=== PATIENT | male | born 1960 | race Caucasian/White ===

== ENCOUNTER 2017-03-11 07:53 | Inpatient (IN) | payer BC, OTHER ==
[2017-02-13 08:26] VITALS: BMI 46.0
[2017-02-13 09:28] LABS: BASO % 0.5 %; BASO ABS # 0.03 K/uL (0-0.2); COMPLETE YES; EOS % 2.6 %; HEMATOCRIT 42.6 % (42-52); IG% 0.2 %; LYMPH % 29.5 %; LYMPH ABS # 1.72 K/uL (1.2-3.4); MEAN CELL VOLUME 88.8 fL (80-100); MEAN CORPUSCULAR HEMOGLOBIN 29.4 pg (25-34); MEAN CORPUSCULAR HGB CONC 33.1 g/dl (32-36); MEAN PLATELET VOLUME 10.5 fL (7.4-10.4); MONO % 10.3 %; NEUT % 56.9 %; PLATELET COUNT 268 K/uL (130-400); WHITE BLOOD COUNT 5.83 K/uL (4.8-10.8)
[2017-02-13 09:36] LABS: PARTIAL THROMBOPLASTIN RATIO 1.1; PROTHROMBIN TIME (PATIENT) 10.5 SECONDS (9.0-12.0)
--- NOTE | 2017-02-13 09:40 | PAT Medication Instructions ---
Service Date Feb 13, 2017. Current Home Medication List Albuterol Hfa (Ventolin Hfa), 2 PUFFS INH QID PRN for RN Allopurinol (Zyloprim), 300 MG PO QAM Cholecalciferol (Vitamin D3), 1 TAB PO BID Diclofenac (Voltaren), 75 MG PO BID Enalapril (Vasotec), 40 MG PO QAM Fish Oil (Odd-3), 1 CAP PO BID Hydrochlorothiazide (Hydrochlorothiazide), 25 MG PO QAM Ipratropium-Albuterol (Combivent Respimat), 1 PUFFS INH BID Tramadol (Ultram), 50 MG PO QID Venlafaxine Hcl (Effexor Xr), 1 CAP PO QAM [Turmeric], 1 TAB PO QAM [Vitamin B12], 1 TAB PO QAM Medication Instructions For Your Scheduled Surgery - Hold the following medications 2 weeks prior to surgery: [Turmeric], 1 TAB PO QAM Fish Oil (Odd-3), 1 CAP PO BID - Hold the following medications 7 days prior to surgery per surgeon's instructions: Diclofenac (Voltaren), 75 MG PO BID - Hold the following medications the morning of surgery: Enalapril (Vasotec), 40 MG PO QAM Hydrochlorothiazide (Hydrochlorothiazide), 25 MG PO QAM [Vitamin B12], 1 TAB PO QAM Cholecalciferol (Vitamin D3), 1 TAB PO BID - Take the following medications the morning of surgery with a sip of water OTHERWISE NOTHING TO EAT OR DRINK AFTER MIDNIGHT: Albuterol Hfa (Ventolin Hfa), 2 PUFFS INH QID PRN (use if needed; BRING TO HOSPITAL) Venlafaxine Hcl (Effexor Xr), 1 CAP PO QAM Allopurinol (Zyloprim), 300 MG PO QAM Ipratropium-Albuterol (Combivent Respimat), 1 PUFFS INH BID Tramadol (Ultram), 50 MG PO QID (may take if needed up to 4 hours prior to surgery) - Take the following medications as scheduled the night before surgery: Albuterol Hfa (Ventolin Hfa), 2 PUFFS INH QID PRN [Vitamin B12], 1 TAB PO QAM Ipratropium-Albuterol (Combivent Respimat), 1 PUFFS INH BID Tramadol (Ultram), 50 MG PO QID Cholecalciferol (Vitamin D3), 1 TAB PO BID If you have any questions please call us at [phone] or [phone] or [phone]
--- NOTE | 2017-02-13 09:40 | DIAGNOSTIC IMAGING REPORT ---
TWO VIEW CHEST CLINICAL HISTORY: Preoperative examination. FINDINGS: PA and lateral chest radiographs are obtained. No prior studies are available for comparison at the time of dictation. The heart is top normal for projection. The mediastinal contour is within normal limits. There is minimal bibasilar atelectasis. The lungs and pleural spaces are otherwise clear. There is no pneumothorax. The bony thorax appears intact. IMPRESSION: No active disease in the chest. Electronically signed by: Celestino Rosas M.D. 02/13/2017 9:39 AM Dictated Date/Time: 02/13/2017 9:38 AM
[2017-02-13 09:46] LABS: BUN/CREATININE RATIO 18.1 (10-20); CALCIUM 9.2 mg/dl (8.5-10.1); CREATININE 0.8 mg/dl (0.60-1.40); POTASSIUM 3.9 mmol/L (3.5-5.1)
[2017-02-13 10:15] LABS: ESTIMATED AVERAGE GLUCOSE 146 mg/dl; HA1C FLAG Normal (Normal)
--- NOTE | 2017-03-07 12:45 | HISTORY & PHYSICAL EXAMINATION ---
DATE OF ADMISSION: 03/11/2017 CHIEF COMPLAINT: Bilateral knee pain, right side greater than left. HISTORY OF PRESENT ILLNESS: A 56-year-old gentleman who has a history of bilateral knee scopes in the past. Over the past several years, he has developed increased pain and discomfort in both knees, right side greater than left. He has been treated at the [facility] in [place] with steroid shots and viscosupplementation. This has become less successful over time. The right knee bothers him more than the left. He is having trouble doing his job which requires significant standing. The more he walks, the more it hurts. He limps all day long. He would like to have his right knee replaced. He is hoping to do the left knee about a year later. PAST MEDICAL HISTORY: 1. Hypertension. 2. Elevated cholesterol. 3. Sleep apnea. 4. Anxiety/depression. 5. Diabetes. 6. Sciatica/low back pain. 7. Obesity with a BMI of 46. PAST SURGICAL HISTORY: Include bilateral knee arthroscopy, the right one done 05/10/2014, left one done 12/10/2012. ALLERGIES: None. CURRENT MEDICINES: Include: 1. Allopurinol 30 mg a day for gout. 2. Hydrochlorothiazide 25 mg a day. 3. Diclofenac 75 mg twice a day. 4. Enalapril 20 mg a day. 5. Venlafaxine 150 mg a day for depression. 6. Tramadol 50 mg 4 times a day for pain. 7. Albuterol inhaler. 8. Unspecified inhaler. SOCIAL HISTORY: A 56-year-old male, he is from [place]. He is employed. He is . FAMILY HISTORY: Noncontributory. REVIEW OF SYSTEMS: Significant for diabetes. His A1c is 6.7. Denies any chest pain or shortness of breath. No history of DVT or PE. No bleeding problems. PHYSICAL EXAMINATION: GENERAL: Reveals a fairly large pleasant, middle-aged male. He looks to be in reasonably good health. HEAD, EYES, EARS, NOSE, AND THROAT EXAMINATION: Benign. NECK: Supple. No lymphadenopathy. LUNGS: Clear to auscultation. HEART: Regular rate and rhythm. ABDOMEN: Soft, nontender, nondistended. EXTREMITY EXAMINATION: Grossly neurovascularly intact except as follows: Examination of both knees reveals the patient walks with a bit of a waddling gait. He has got varus alignment to both knees. He has got hypertrophy medially on both sides. Small knee effusion on both sides. Range of motion is pretty symmetrically about 5 degrees short of full extension and 120 degrees of flexion. No significant instability. X-RAYS: X-rays of both knees shows advanced medial compartment DJD. Pretty equal in severity on both sides. He has got complete loss of his medial joint space of both knees. Osteophytes in all 3 compartments. ASSESSMENT: A 56-year-old male with bilateral knee pain and degenerative joint disease, with a history of knee arthroscopy in the past. The right knee is worse than the left. He has failed conservative treatment and would like to have his right knee replaced. PLAN: We are going to take him to the operating room and do a right total knee replacement. The risks and benefits of this procedure were explained to the patient including but not limited to DVT, PE, , infection, neurological injury, vascular injury, bleeding problem, pain, limited range of motion, stiffness, failure to relieve his symptoms, incomplete relief of symptoms, need for further surgery in the future, fracture, leg length inequality, nerve palsy, persistent pain, need for revision surgery, etc. The patient understands and desires to proceed. Informed consent was obtained. We talked about holding his enalapril the morning of surgery and diclofenac 2 weeks preop. His preoperative workup was all negative. He should be able to be discharged to home and either do outpatient therapy plus/minus some home health. I will see him back 2 weeks postop.
[2017-03-11] VITALS (8 sets, daily range): BP systolic 134–178; BP diastolic 82–98; PULSE 75–98; TEMP 36.3–37; O2SAT 93–97; Ht 182.9 cm; Wt 149.7 kg
[~2017-03-11] VITALS: Ht 182.9 cm; Wt 149.7 kg
[~2017-03-11 07:53] MED LIST: ACETAMINOPHEN 500 MG TAB PO SCH; ALLO300T2 PO; BUPIVACAINE LIPOSOME 266 MG, BUPIVACAINE/EPINEPHRINE INJ 50 ML, SODIUM CHLORIDE 0.9% PF... INFIL SCH; BUPIVACAINE/EPINEPHRINE 0.25% 1:200,000 30 ML VIAL ONE; CEFAZOLIN 3000 MG/65 ML D5W 65 ML IV SCH; CHOL1000 PO; DEXAMETHASONE SOD INJ 4 MG/ML VIAL ONE; DICL-201 PO; ENAL10TA88 PO; FAMOTIDINE 20 MG TAB PO SCH; GABAPENTIN 300 MG CAP PO SCH; HYDR25TA5 PO; IPRA1AER2 INH; LACTATED RINGER'S 1000ML 1,000 ML IV SCH; LACTATED RINGER'S 1000ML 500 ML IV ONE; LACTATED RINGER'S 1000ML IV SCH; METOCLOPRAMIDE HCL 10 MG TAB PO SCH; OMEG10007 PO; SCOPOLAMINE 1.5 MG TDSY TD SCH; TRAM-10 PO; TURMERIC PO; VENL150C PO; VITAMIN B12 PO; VNTHFA/IN INH
--- NOTE | 2017-03-11 08:51 | History & Physical Bridge Note ---
H&P Re-Evaluation Bridge Note: I have examined the patient, reviewed the History & Physical and in the interval since the performance of the History & Physical I have noted the following changes of clinical significance: No changes noted
[2017-03-11] MEDS ORDERED: BUPIVACAINE 0.5 % 5 MG/1 ML PF 10ML VIAL ONE (08:56)
[2017-03-11] MEDS ORDERED: FENTANYL CITRATE INJ 50 MCG/1 ML 2 ML VIAL ONE (10:19)
[2017-03-11] MEDS ORDERED: MIDAZOLAM HCL 1 MG/ML 2ML VIAL ONE (10:19)
[2017-03-11] MEDS ORDERED: BUPIVACAINE/EPINEPHRINE 0.25% 1:200,000 30 ML VIAL ONE (11:11)
[2017-03-11] MEDS ORDERED: BACITRACIN 50000 UNIT VIAL ONE (11:12)
[2017-03-11] MEDS ORDERED: SODIUM CHLORIDE 0.9% PF 50 ML VIAL ONE (11:12)
[2017-03-11] MEDS ORDERED: BUPIVACAINE LIPOSOME 1/3% 266 MG/20 ML VIAL INFIL ONE (11:12)
[2017-03-11] MEDS ORDERED: FENTANYL CITRATE INJ 50 MCG/1 ML 2 ML VIAL IV PRN (11:45)
[2017-03-11] MEDS ORDERED: ONDANSETRON INJ 2 MG/ML 2 ML VIAL IV PRN ×2 (11:45→13:15)
[2017-03-11] MEDS ORDERED: ATROPINE SULFATE 0.1 MG/ML 5ML SYR IV PRN (11:45)
[2017-03-11] MEDS ORDERED: EpHEDrine SULFATE INJ 50 MG/ML AMP IV PRN (11:45)
[2017-03-11] MEDS ORDERED: KETAMINE HCL INJ 50 MG/ML 10 ML VIAL ONE (11:49)
[2017-03-11] MEDS ORDERED: LIDOCAINE HCL 2% 2 ML VIAL (20MG/ML) ONE (12:31)
[2017-03-11] MEDS ORDERED: PROPOFOL IV EMULSION 10 MG/ML 20 ML VIAL IV ONE (12:31)
--- NOTE | 2017-03-11 13:12 | [facility] Post Operative Brief Note ---
Immediate Operative Summary Operative Date Mar 11, 2017. Pre-Operative Diagnosis right knee degenerative joint disease Post-Operative Diagnosis right knee degenerative joint disease Procedure(s) Performed Right total knee arthroplasty Surgeon Dr. Yonis Byrd Director Of Community Education Surgeon(s) Flako Chapin PA-C Estimated Blood Loss 22CC Findings Right Knee DJD Fluids (cc crystalloids) 2200 cc Specimens A: Right knee bone and tissue Drains None Anesthesia Spinal Complication(s) None Disposition Recovery Room / PACU
[2017-03-11] MEDS ORDERED: DiphenhydrAMINE HCL 50 MG/ML VIAL IV PRN (13:15)
[2017-03-11] MEDS ORDERED: MoRPHine SULFATE 2 MG/ML CARP IV PRN (13:15)
[2017-03-11] MEDS ORDERED: ALBUTEROL HFA 8 GM INHALER INH PRN (13:15)
[2017-03-11] MEDS ORDERED: MAGNESIUM HYDROXIDE SUSP 30 ML UDC PO PRN (13:15)
[2017-03-11] MEDS ORDERED: METOCLOPRAMIDE HCL INJ 5 MG/ML 2 ML VIAL IV PRN (13:15)
[2017-03-11] MEDS ORDERED: TAMSULOSIN HCL 0.4 MG CAP PO PRN (13:15)
[2017-03-11] MEDS ORDERED: ALUMINUM/MAGNESIUM/SIMETH (MAALOX MAX) 30 ML UDC PO PRN (13:15)
[2017-03-11] MEDS ORDERED: BISACODYL 10 MG SUPP PR PRN (13:15)
[2017-03-11] MEDS ORDERED: SILVER SULFADIAZINE 1% CR 50 GM JAR EXT PRN (13:15)
[2017-03-11] MEDS ORDERED: ZOLPIDEM TARTRATE 5 MG TAB PO PRN (13:15)
[2017-03-11] MEDS ORDERED: GLUCAGON FOR INJ 1 MG VIAL SQ PRN (13:30)
[2017-03-11] MEDS ORDERED: GLUCOSE 10 TABS/TUBE PO PRN (13:30)
[2017-03-11] MEDS ORDERED: GLUCOSE 40% GEL 15 GM TUBE PO PRN (13:30)
[2017-03-11] MEDS ORDERED: DEXTROSE 50% 50 ML SYR IV PRN (13:30)
--- NOTE | 2017-03-11 13:45 | DIAGNOSTIC IMAGING REPORT ---
TWO VIEWS RIGHT KNEE CLINICAL HISTORY: Postoperative examination. FINDINGS: AP and crosstable lateral portable views of the right knee are obtained. A right knee arthroplasty is in near anatomic alignment. There has been undersurface remodeling of the patella. No acute fracture is seen. There are expected postoperative changes around the knee including skin clips, a surgical drain, soft tissue edema, and subcutaneous gas. IMPRESSION: Expected postoperative changes status post right knee arthroplasty. No acute fracture is seen. Electronically signed by: Celestino Rosas M.D. 03/11/2017 1:43 PM Dictated Date/Time: 03/11/2017 1:43 PM
--- NOTE | 2017-03-11 14:25 | Anesthesiology Progress Note ---
Anesthesia Post Op Note Date & Time Mar 11, 2017 at 14:25 Vital Signs Pain Intensity: 0 Vital Signs Past 12 Hours Date Time Temp Pulse Resp B/P Pulse Ox O2 Delivery O2 Flow Rate FiO2 03/11/17 14:05 36.6 77 16 160/92 95 Nasal Cannula 3 03/11/17 13:55 66 16 146/87 95 Nasal Cannula 3 03/11/17 13:45 84 16 141/95 99 Nasal Cannula 3 03/11/17 13:35 84 16 152/75 98 Nasal Cannula 3 03/11/17 13:25 36.5 74 16 133/86 97 Nasal Cannula 3 03/11/17 13:19 36.5 79 16 123/67 97 Nasal Cannula 3 03/11/17 08:42 36.5 92 20 142/91 97 Room Air Notes Mental Status: alert / awake / arousable, participated in evaluation Pt Amnestic to Procedure: Yes Nausea / Vomiting: adequately controlled Pain: adequately controlled Airway Patency, RR, SpO2: stable & adequate BP & HR: stable & adequate Hydration State: stable & adequate Neuraxial Anesthesia: was administered, sensory block is resolving Anesthetic Complications: no major complications apparent
[2017-03-11] MEDS: SODIUM CHLORIDE 0.9% 1000ML 1,000 ML IV SCH ×2 (15:30→20:30)
--- NOTE | 2017-03-11 15:31 | OPERATIVE REPORT ---
DATE OF OPERATION: 03/11/2017 SURGEON: Dr. Yonis Byrd. PHYSICIAN PRACTICE MARKET MANAGER: CORY Skinner PREOPERATIVE DIAGNOSIS: Right knee degenerative joint disease. POSTOPERATIVE DIAGNOSIS: Right knee degenerative joint disease. PROCEDURE PERFORMED: Right cemented posterior stabilized total knee arthroplasty. COMPLICATIONS: None. ESTIMATED BLOOD LOSS: 50 mL. FLUID REPLACEMENT: 2200 mL crystalloid fluid replacement. TOURNIQUET TIME: 65 minutes at 350 mmHg. ANESTHESIA: Spinal with adductor canal block. DRAINS: None. SPECIMENS: Right knee sent for pathology. OPERATIVE INDICATIONS: The patient is a 56-year-old fairly active gentleman who has had a long history of bilateral knee pain and discomfort. He has had both of his knees scoped in the past, which provides some temporary relief only. He has developed progressive pain in his right knee. He failed conservative care. The patient's x-rays revealed advanced DJD and the patient elected to proceed with operative treatment. OPERATIVE FINDINGS: Operative findings revealed advanced right knee DJD. He had grade 4 lsqs-[id number] disease extensively in the medial femoral condyle and medial tibial plateau. He has fixed varus deformity to his knee. A very stiff knee with about 10-15 degree flexion contracture and flexion to about 120. OPERATIVE IMPLANTS: Consisted of: 1. Biomet Vanguard size 75 right posterior stabilized femoral component. 2. Biomet size 79 tibial tray. 3. A 10-mm posterior stabilized polyethylene insert. 4. A 37 x 10 All-Poly patella. OPERATIVE PROCEDURE: The patient taken to the operating room, identified and placed on the operating table in supine position. All contact areas were appropriately padded. IV antibiotics were provided by anesthesia team. A spinal anesthetic and adductor canal block had been provided in the holding area. Barney catheter was placed in sterile fashion. Right thigh tourniquet was then placed and the right lower extremity was then prepped and draped in the usual sterile fashion. The right leg was elevated and exsanguinated with Esmarch and tourniquet was placed correct at 350 mmHg. An anterior approach to the right knee was then performed through a longitudinal incision centered over the patella. Sharp dissection was carried out through the subcutaneous tissues down to the level of the extensor mechanism. A medial parapatellar arthrotomy incision was made. A subperiosteal dissection was carried out medially. The fat pad was resected from beneath the patellar tendon. His knee was extensively stiff and quite a bit of scarring. I spent quite a bit of time mobilize his kneecap. I released the lateral patellofemoral ligament. I tried to alley the patella, but the patella was extremely large. We cleaned of all soft tissues. I elected to cut the patella first. The patella was cleaned of all soft tissues. Patellar thickness measured about 28 mm in thickness and cut down to 16. It was sized to a size 37 patella. I did remove the lateral osteophyte, but did not prepare the patella until the end of the case. The patella was subluxated laterally. The knee was flexed. The osteophytes were taken off the distal femur. The ACL and PCL were then released from the distal femur and the tibia subluxated anteriorly. The external tibial alignment jig was then placed in the anterior face of the tibia and adjusted 16 mm medially. Proximal tibial cut was made to remove about a millimeter or 2 of bone from the most deficient aspect of the medial tibial plateau. I did take a fairly large piece off laterally. Some osteophytes were taken off medial and posteromedially. The tibia was then sized to a size 79. Attention was then drawn to the femur. The distal femur was entered with a sharp drill bit. Intramedullary canal was suctioned. A right 6-degree valgus cutting guide was placed. Distal femoral cutting block was pinned in place. Distal femoral cut was made to take an additional 3 mm of bone off the distal femur. The femur was then sized to a size 75. We did downsize this slightly. The AP cutting block was pinned parallel to the epicondylar axis, which was 4 degrees of external rotation. The anterior cut, anterior chamfer, posterior cut, and posterior chamfer cuts were made. Box cutting guide was placed and adjusted slightly lateral and the box cut was made. The knee was flexed. The remnants of the medial and lateral meniscus were excised. The osteophytes were taken off the posterior aspect of the femur. Trial femoral component was placed. Tibial tray was pinned in maximum external rotation and drill and stem punch were used to create defect in proximal tibia for the tibial tray. The knee was then trialed and the 10-mm insert fit most appropriately. I really did not want to make him too tight as the knee was extremely tight with a flexion contracture preoperatively. Attention was then drawn back to the patella. The patella was prepared with the 37 template and the lug holes were drilled. The patella button was placed. Knee was taken through range of motion and patella tracked nicely with no thumbs test. Attention was then drawn toward placement of permanent components. All trial components were removed. A bone plug was placed in the distal femur to limit blood loss. A double batch of Palacos G cement was mixed. A right size 75 posterior stabilized femoral component, size 79 tibial tray, a 10-mm posterior stabilized polyethylene insert, and a 37 x 10 All-Poly patella were then cemented in place. Knee was brought out into full extension until cement hardened. A final cement check was then performed. Pericapsular tissues were injected with 100 mL of a combination of 20 mL of Exparel, 30 mL of normal saline, and 50 mL of 0.25% Marcaine with epinephrine. The patient did receive 1 gram of tranexamic acid. The tourniquet was let down for a final tourniquet time of 65 minutes at 350 mmHg. The hemostasis assured with use of electrocautery. The extensor mechanism was then closed with a combination of #1 PDS suture and #1 Vicryl suture in a [id number] fashion. Extensor mechanism was checked and found to be intact. The subcutaneous tissues were then closed with 2-0 Dexon suture in a buried interrupted fashion. Skin was closed with skin elsi. Leg was then cleaned and dried and a sterile dressing of Xeroform, 4 x 4, sterile cast padding and Dustin bandage were applied. The patient then transferred to the recovery room in stable condition. The patient tolerated the procedure well with no complications. All needle and sponge counts were correct at the end of the operation. I attest to the content of the Intraoperative Record and any orders documented therein. Any exceptio ns are noted below.
[2017-03-11] MEDS: CHECK SCOPOLAMINE PATCH PLACEMENT SCH ×2 (16:23→23:50)
[2017-03-11] MEDS: TRANEXAMIC ACID INJ 1,000 MG in SODIUM CHLORIDE 0.9% 100ML 100 ML IV SCH ×2 (17:15→17:27)
[2017-03-11] MEDS: OXYCODONE HCL IR 5 MG TAB (IMMEDIATE RELEASE) PO PRN (17:21)
[2017-03-11] MEDS: FERROUS GLUCONATE 324 MG TAB PO SCH (17:21)
[2017-03-11] MEDS: KETOROLAC TROMETHAMINE 30 MG/ML VIAL IV. SCH ×2 (17:23→23:50)
[2017-03-11] MEDS: INSULIN HUMAN REGULAR SC SCH ×2 (18:34→21:50)
[2017-03-11] MEDS ORDERED: TRANEXAMIC ACID INJ 1,000 MG in SODIUM CHLORIDE 0.9% 100ML 100 ML IV SCH (19:15)
[2017-03-11] MEDS: CEFAZOLIN IV 2,000 MG in DEXTROSE 5% 50ML 50 ML IV SCH (20:15)
[2017-03-11] MEDS: IPRATROPIUM BROMIDE/ALBUTEROL respimat INH INH SCH (20:20)
[2017-03-11] MEDS: ASPIRIN 325 MG ECTAB PO SCH (20:21)
[2017-03-11] MEDS: ACETAMINOPHEN 500 MG TAB PO SCH (20:21)
[2017-03-11] MEDS: DOCUSATE SODIUM 100 MG CAP PO SCH (20:22)
[2017-03-11] MEDS: CHOLECALCIFEROL 400 INTER.UNIT TAB PO SCH (20:23)
[2017-03-11] MEDS: TAPENTADOL ER 50 MG TABCR PO SCH (20:30)
[2017-03-12] MEDS: SODIUM CHLORIDE 0.9% 1000ML 1,000 ML IV SCH ×2 (02:22→09:17)
[2017-03-12 03:15] VITALS: BP 143/83; PULSE 83; TEMP 36.4; O2SAT 96
[2017-03-12] MEDS: CEFAZOLIN IV 2,000 MG in DEXTROSE 5% 50ML 50 ML IV SCH (03:40)
[2017-03-12] MEDS: ACETAMINOPHEN 500 MG TAB PO SCH ×3 (05:33→21:26)
[2017-03-12] MEDS: KETOROLAC TROMETHAMINE 30 MG/ML VIAL IV. SCH ×4 (05:34→23:51)
[2017-03-12 06:45] LABS: HEMATOCRIT 35.3 % (42-52); MEAN CELL VOLUME 87.8 fL (80-100); MEAN CORPUSCULAR HEMOGLOBIN 29.4 pg (25-34); MEAN CORPUSCULAR HGB CONC 33.4 g/dl (32-36); MEAN PLATELET VOLUME 10.3 fL (7.4-10.4); PLATELET COUNT 252 K/uL (130-400); RED BLOOD COUNT 4.02 M/uL (4.7-6.1); WHITE BLOOD COUNT 9.57 K/uL (4.8-10.8)
[2017-03-12 07:35] VITALS: BP 151/76; PULSE 85; TEMP 36.5; O2SAT 95
--- NOTE | 2017-03-12 07:44 | ORTHOPEDIC PROGRESS NOTE ---
DATE: 03/12/2017 SUBJECTIVE: Benito is a 56-year-old male now postop day 1 from right total knee replacement. He is doing pretty well, some knee pain, but pain is controlled. No chest pain, shortness of breath. No other complaints. OBJECTIVE: He is alert, oriented in no distress. He is actually sleeping and we woke him up this morning. Vital signs have been stable. Some hypertension. Hemoglobin and hematocrit this morning 11.8/35.3. Examination of the right lower extremity dressing is clean, dry and intact. Calf is soft and nontender. He is able to dorsiflex, plantarflex appropriately. He is neurovascularly intact. ASSESSMENT: Postop day 1 from right total knee replacement. PLAN: He was seen and examined by Dr. Byrd today as well. Continue PT, OT. Weightbearing as tolerated. Total knee protocol, DIEGO stockings, SCDs and aspirin for DVT prophylaxis. Pain is controlled. Continue discharge planning. Will likely discharge home tomorrow for either outpatient therapy or possible home health.
[2017-03-12] MEDS: INSULIN HUMAN REGULAR SC SCH ×4 (08:00→21:35)
[2017-03-12] MEDS: CHECK SCOPOLAMINE PATCH PLACEMENT SCH ×2 (08:17→17:19)
[2017-03-12 08:25] LABS: BUN/CREATININE RATIO 17.2 (10-20); CREATININE 0.93 mg/dl (0.60-1.40); POTASSIUM 3.9 mmol/L (3.5-5.1)
[2017-03-12 08:57] LABS: CALCIUM 8.6 mg/dl (8.5-10.1)
[2017-03-12] MEDS: IPRATROPIUM BROMIDE/ALBUTEROL respimat INH INH SCH ×2 (09:03→21:29)
[2017-03-12] MEDS: ASPIRIN 325 MG ECTAB PO SCH ×2 (09:04→21:28)
[2017-03-12] MEDS: DOCUSATE SODIUM 100 MG CAP PO SCH ×2 (09:04→21:28)
[2017-03-12] MEDS: FERROUS GLUCONATE 324 MG TAB PO SCH ×3 (09:04→18:45)
[2017-03-12] MEDS: PANTOprazole SOD 40 MG TAB PO SCH (09:05)
[2017-03-12] MEDS: MULTIVITAMIN TAB PO SCH (09:05)
[2017-03-12] MEDS: VENLAFAXINE HCL XR 150 MG CAPXR PO SCH (09:06)
[2017-03-12] MEDS: ENALAPRIL MALEATE 10 MG TAB PO SCH (09:06)
[2017-03-12] MEDS: HYDROCHLOROTHIAZIDE 25 MG TAB PO SCH (09:07)
[2017-03-12] MEDS: ALLOPURINOL 300 MG TAB PO SCH (09:08)
[2017-03-12] MEDS: CHOLECALCIFEROL 400 INTER.UNIT TAB PO SCH ×2 (09:09→21:28)
[2017-03-12] MEDS: TAPENTADOL ER 50 MG TABCR PO SCH ×2 (09:17→21:33)
--- NOTE | 2017-03-12 10:47 | Anesthesiology Progress Note ---
Anesthesia Post Op Note Date & Time Mar 12, 2017 at 10:46 Vital Signs Pain Intensity: 0.0 Vital Signs Past 12 Hours Date Time Temp Pulse Resp B/P Pulse Ox O2 Delivery O2 Flow Rate FiO2 03/12/17 07:45 Room Air 03/12/17 07:35 36.5 85 16 151/76 95 Room Air 03/12/17 03:15 36.4 83 18 143/83 96 Room Air 03/12/17 00:00 Room Air 03/11/17 23:00 36.7 95 17 135/86 95 Room Air Notes Mental Status: alert / awake / arousable, participated in evaluation Pt Amnestic to Procedure: Yes Nausea / Vomiting: adequately controlled Pain: adequately controlled Airway Patency, RR, SpO2: stable & adequate BP & HR: stable & adequate Hydration State: stable & adequate Neuraxial Anesthesia: sensory block resolved Anesthetic Complications: no major complications apparent
[2017-03-12] MEDS: OXYCODONE HCL IR 5 MG TAB (IMMEDIATE RELEASE) PO PRN ×2 (11:13→21:34)
[2017-03-12 11:17] VITALS: BP 150/92; PULSE 88; TEMP 36.6; O2SAT 97
[2017-03-12 14:51] VITALS: BP 131/81; PULSE 103; TEMP 36.7; O2SAT 94
[2017-03-12 16:00] VITALS: O2SAT 94
[2017-03-12] MEDS ORDERED: ASPEC325 PO (21:03)
[2017-03-12] MEDS ORDERED: OXYC-57 PO (21:03)
[2017-03-12] MEDS ORDERED: MORP15TA19 PO (21:03)
--- NOTE | 2017-03-12 21:05 | Discharge Instructions ---
Discharge Instructions Date of Service Mar 12, 2017. Admission Reason for Admission: Right Knee Degenerative Joint Disease Discharge Discharge Diagnosis / Problem: Right Knee REplacement Discharge Goals Goal(s): Decrease discomfort, Improve function, Increase independence, Improve disease control, Therapeutic intervention Activity Recommendations Activity Limitations: per Instructions/Follow-up section . Instructions / Follow-Up Instructions / Follow-Up ACTIVITY RECOMMENDATIONS: Physical Therapy: * You will go to physical therapy three times each week for four to six weeks after your surgery in order to regain your knee range of motion and to retrain your knee to work properly. * It is just as important to make sure you are getting your knee perfectly straight as it is to regain your knee bend. * Taking a pain pill an hour before therapy can help you have a more productive and comfortable therapy session. Home Exercise: * You were shown a series of exercises (heel props, heel slides, etc.) in the hospital. Do these exercises three to four times each day including the exercises you were shown in physical therapy. Walking: * Get up and walk several times each day. For the first four weeks, try not to stand or walk for more than one hour at a time. If you do stand or walk for more than one hour, you will not hurt anything, but your knee and leg will likely swell. * As you feel comfortable, you may change from the walker or crutches to a cane and then to independent walking. MEDICATIONS: New Medicine: * You will likely be taking one or more of these medications: 1. MS Contin - A long-acting pain medication. Take 1 tablet twice a day for the first ten days to decrease your baseline level of pain. 2. Percocet - A quick and shorter-acting pain medication. Take one to two tablets every four to six hours to lessen your pain. 3. Aspirin - Thins your blood to lessen the chance of forming a blood clot. * The most common side effects of pain medicine and iron are nausea and constipation. If nausea or constipation is too much of a problem or if you have any questions about your new medicines or doses, call [facility] at . We will try to help you manage these issues. VERY IMPORTANT TO READ AND REVIEW" Pain: * The immediate post-operative period after knee replacement surgery is often quite painful. * You are given a prescription for pain medicine. You should take it, as directed, when you need it, especially before physical therapy and before going to bed. Pain that interferes with sleep is very common and can last several months. * You will likely need pain medicine for the first four to six weeks. It will not stop all of the pain. The pain will lessen and as you feel better, you may change to milder pain medicine such as Tylenol. * The most common side effects of pain medicine are nausea and constipation, so don't take more than you need. SPECIAL CARE INSTRUCTIONS: TEDs/Elastic Stockings: * The white elastic stockings help limit swelling and prevent blood clots from forming in your legs. The more you wear them, the more they work. * Wear them for six weeks after knee replacement surgery and four weeks after partial knee replacement. Prevention of Infection: * Take antibiotics one hour before any dental cleaning, dental work, urological procedure, gastrointestinal procedure or any invasive surgery in order to prevent your new joint from getting infected. * You may get the antibiotics from the doctor performing the procedure or you may call our office at before and we will call in a prescription to the pharmacy of your choice. Things to Watch For: * Drainage from the incision site that occurs more than one week after your surgery. * Severely increased knee/leg pain or swelling. * Increased redness at the incision site. * Fever above 102 degrees Fahrenheit. * Unusual chest pain or shortness of breath. * Unusual pain or burning with urination. Call [facility] at with any of the above problems or if you have any questions about your medicines or recovery. FOLLOW UP VISIT: Make an appointment to see your doctor for approximately two weeks after surgery for a progress check and staple removal by calling the office at . Current Hospital Diet Patient's current hospital diet: Diabetes Type 2 Diet Discharge Diet Recommended Diet: Diabetes Type 2 Diet Procedures Procedures Performed: Right total knee arthroplasty Pending Studies Studies pending at discharge: no Laboratory Results Hemoglobin A1c Test 02/13/17 09:04 Range/Units Estimated Average Glucose 146 mg/dl Hemoglobin A1c 6.7 H 4.5-5.6 % Medical Emergencies . Who to Call and When: Medical Emergencies: If at any time you feel your situation is an emergency, please call 911 immediately. . Non-Emergent Contact Non-Emergency issues call your: Surgeon . "Provider Documentation" section prepared by Yonis Byrd. VTE Core Measure Inpt VTE Proph given/why not?: Other Anticoagulation, T.E.D. Milagros, SCD's
[2017-03-12 23:16] VITALS: BP 138/79; PULSE 75; TEMP 36.8; O2SAT 97
[2017-03-13] MEDS: CHECK SCOPOLAMINE PATCH PLACEMENT SCH (00:13)
[2017-03-13] MEDS: KETOROLAC TROMETHAMINE 30 MG/ML VIAL IV. SCH (06:17)
[2017-03-13] MEDS: ACETAMINOPHEN 500 MG TAB PO SCH (06:17)
[2017-03-13] MEDS: OXYCODONE HCL IR 5 MG TAB (IMMEDIATE RELEASE) PO PRN (06:18)
[2017-03-13 06:30] VITALS: BP 132/87; PULSE 90; TEMP 36.5; O2SAT 95
[2017-03-13] MEDS: INSULIN HUMAN REGULAR SC SCH (08:00)
--- NOTE | 2017-03-13 08:16 | PROGRESS NOTE ---
DATE: 03/13/2017 SUBJECTIVE: A 56-year-old gentleman postop day 2 from a right knee replacement. He is doing pretty well. He feels he overdid in therapy yesterday but under better control this morning. Denies any chest pain or shortness of breath. Not feeling dizzy or lightheaded. OBJECTIVE: VITAL SIGNS: Temperature 36.5. Vital signs stable. PHYSICAL EXAMINATION: GENERAL: Reveals a healthy, pleasant, middle-aged male. He is sitting up in his bedside chair. He looks pretty comfortable. LUNGS: Clear to auscultation. HEART: Regular rate and rhythm. ABDOMEN: Soft, nontender, nondistended. EXTREMITIES: Grossly neurovascularly intact except as follows: Examination of the right lower extremity reveals just a trace bit of bloody drainage on his dressing. He can dorsiflex and plantarflex his foot appropriately. He can do a straight leg raise. He is neurologically intact. ASSESSMENT: A 56-year-old gentleman postop day 2 from a right knee replacement, doing pretty well. Pain is controlled. PLAN: 1. DVT prophylaxis including thigh-high TEDs, SCDs, and aspirin twice a day. 2. PT/OT. Weightbearing as tolerated. Right total knee protocol. 3. Pain control, doing pretty well with current pain regimen. 4. Disposition: Plan to discharge to home with some home health later today.
[2017-03-13] MEDS: HYDROCHLOROTHIAZIDE 25 MG TAB PO SCH (08:57)
[2017-03-13] MEDS: IPRATROPIUM BROMIDE/ALBUTEROL respimat INH INH SCH (08:57)
[2017-03-13] MEDS: FERROUS GLUCONATE 324 MG TAB PO SCH (08:57)
[2017-03-13] MEDS: VENLAFAXINE HCL XR 150 MG CAPXR PO SCH (08:57)
[2017-03-13] MEDS: ENALAPRIL MALEATE 10 MG TAB PO SCH (08:57)
[2017-03-13] MEDS: MULTIVITAMIN TAB PO SCH (08:58)
[2017-03-13] MEDS: PANTOprazole SOD 40 MG TAB PO SCH (08:58)
[2017-03-13] MEDS: CHOLECALCIFEROL 400 INTER.UNIT TAB PO SCH (08:58)
[2017-03-13] MEDS: ALLOPURINOL 300 MG TAB PO SCH (08:58)
[2017-03-13] MEDS: ASPIRIN 325 MG ECTAB PO SCH (09:12)
[2017-03-13] MEDS: TAPENTADOL ER 50 MG TABCR PO SCH (09:12)
[2017-03-13] MEDS: DOCUSATE SODIUM 100 MG CAP PO SCH (09:12)
[2017-03-13 10:58] VITALS: BP 132/87; PULSE 90; TEMP 36.5; O2SAT 95
--- NOTE | 2017-03-18 15:43 | DISCHARGE SUMMARY ---
ADMITTING PHYSICIAN AND SURGEON: Dr. Byrd. ADMITTING DIAGNOSIS: Right knee degenerative joint disease. SURGERY PERFORMED: Right total knee arthroplasty. SECONDARY DIAGNOSES: Includes hypertension, elevated cholesterol, sleep apnea, anxiety, depression, diabetes, sciatica, low back pain, and obesity. CONSULTS: None obtained. HISTORY AND PHYSICAL EXAMINATION: Well documented in the patient's chart. HOSPITAL COURSE: The patient was admitted on 03/11/2017 underwent total knee arthroplasty. He tolerated the procedure well. There were no complications. He was transferred to the PACU postoperatively and later to the orthopedic floor for further care. He was given Ancef for antibiotic prophylaxis, DIEGO stockings, SCDs and aspirin for DVT prophylaxis. Hemoglobin, hematocrit and vital signs were monitored during his hospital stay and remained stable. He developed some postoperative anemia with hemoglobin of 11.8, did not require any blood transfusions. There were no complications. By postoperative day 2, he was tolerating a diabetic diet. Pain was controlled with oral pain medicine. He was participating in physical therapy. He had no signs or symptoms of deep vein thrombosis. On postop day 2, he was discharged home and set up with home health services. He was given printed discharge instructions including prescriptions for aspirin 325 mg b.i.d., MS Contin and Percocet. Continue his home medicines. Continue physical therapy, weightbearing as tolerated, DIEGO stockings. Follow up in 10-12 days or sooner if there are any problems or concerns.
== END 2017-03-13 12:01 | disposition home health service (06) | DRG 470 ==
LOC: ENRESERVTM → ENRESERVDT → C.ACU 07:53 → C.MSW 13:17
PROVIDERS: ADMIT Orthopaedic Surgery Sports Medicine; ATTEND Orthopaedic Surgery Sports Medicine
PROC: 0SRC0J9 Replacement of Right Knee Joint with Synthetic Substitute, Cemented, Open Approach (ICD-10-PCS; principal; 2017-03-11 10:55)
DX: M17.11 Unilateral primary osteoarthritis, right knee (principal); Z68.42 Body mass index [BMI] 45.0-49.9, adult; I10 Essential (primary) hypertension; E78.00 Pure hypercholesterolemia, unspecified; G47.30 Sleep apnea, unspecified; F41.9 Anxiety disorder, unspecified; F32.9 Major depressive disorder, single episode, unspecified; E66.9 Obesity, unspecified; M54.30 Sciatica, unspecified side; E11.9 Type 2 diabetes mellitus without complications; Z79.899 Other long term (current) drug therapy

== ENCOUNTER 2019-02-08 07:15 | Inpatient (IN) ==
--- NOTE | 2019-01-14 08:54 | PAT Medication Instructions ---
Medication Instructions Date of Service January 14, 2019 Home Medications Beet Root Extract 1 tab PO QAM albuterol sulfate [ProAir HFA] 1 puff INHALATION Q6H NEEDED allopurinol 300 mg PO QAM cholecalciferol (vitamin D3) 1,000 unit PO QAM cyanocobalamin (vitamin B-12) 1,000 mcg PO QAM diclofenac sodium 75 mg PO QAM enalapril maleate 40 mg PO QAM hydrochlorothiazide 25 mg PO QAM ipratropium-albuterol [Combivent] 1 puff INHALATION BID metformin 500 mg PO QAM omega 6-xks-vib-fish oil [Fish Oil] 1 cap PO QAM prazosin 6 mg PO HS NEEDED tramadol 50 mg PO Q6H NEEDED venlafaxine 150 mg PO QAM ASK your surgeon for instructions diclofenac sodium 75 mg PO QAM STOP taking 2 weeks before surgery Beet Root Extract 1 tab PO QAM omega 5-mjb-sge-fish oil [Fish Oil] 1 cap PO QAM DO NOT take the morning of surgery allopurinol 300 mg PO QAM cholecalciferol (vitamin D3) 1,000 unit PO QAM cyanocobalamin (vitamin B-12) 1,000 mcg PO QAM enalapril maleate 40 mg PO QAM hydrochlorothiazide 25 mg PO QAM metformin 500 mg PO QAM Take morning of surgery With a small sip of water, OTHERWISE NOTHING TO EAT OR DRINK AFTER MIDNIGHT: albuterol sulfate [ProAir HFA] 1 puff INHALATION Q6H NEEDED (bring to the hospital) ipratropium-albuterol [Combivent] 1 puff INHALATION BID venlafaxine 150 mg PO QAM tramadol 50 mg PO Q6H NEEDED Take evening before surgery albuterol sulfate [ProAir HFA] 1 puff INHALATION Q6H NEEDED ipratropium-albuterol [Combivent] 1 puff INHALATION BID prazosin 6 mg PO HS NEEDED tramadol 50 mg PO Q6H NEEDED Other Notes If you have any questions please call us at [phone] or [phone] or [phone] or [phone]
--- NOTE | 2019-01-14 09:34 | Anesthesiology Consultation ---
Date of Service January 14, 2019 Assessment & Plan (1) Encounter for pre-operative examination: Chart Review Chart Review: Acceptable Risk for Surgery and Patient seen in Pre Admission Testing Consults Requested none Teaching & Discussion Pre-Anesthesia Teaching/Discussion Notes: Instructed NPO after midnight before surgery, except medications with 15 cc of water. Medication instructions provided according to the PAT guidelines. History Surgery Operation Date: 02/08/19 12:30 Proposed Procedures p Left Total Knee Arthroplasty - Yonis Byrd MD Height/Weight Height: 6 ft Weight: 157.7 kg Allergies Allergy/AdvReac Type Severity Reaction Status Date / Time No Known Allergies Allergy Unverified 01/12/19 11:48 Medications Home Medications Medication Instructions Recorded Confirmed Last Taken Beet Root Extract 1 tab PO QAM 01/12/19 01/12/19 Unknown albuterol sulfate [ProAir HFA] 1 puff INHALATION Q6H PRN 01/12/19 01/12/19 Unknown allopurinol 300 mg PO QAM 01/12/19 01/12/19 Unknown cholecalciferol (vitamin D3) 1,000 unit PO QAM 01/12/19 01/12/19 Unknown [Vitamin D3] cyanocobalamin (vitamin B-12) 1,000 mcg PO QAM 01/12/19 01/12/19 Unknown [Vitamin B-12] diclofenac sodium 75 mg PO QAM 01/12/19 01/12/19 Unknown enalapril maleate 40 mg PO QAM 01/12/19 01/12/19 Unknown hydrochlorothiazide 25 mg PO QAM 01/12/19 01/12/19 Unknown ipratropium-albuterol [Combivent 1 puff INHALATION BID 01/12/19 01/12/19 Unknown Respimat] metformin 500 mg PO QAM 01/12/19 01/12/19 Unknown omega 8-fok-abq-fish oil [Fish Oil] 1 cap PO QAM 01/12/19 01/12/19 Unknown prazosin 6 mg PO HS PRN 01/12/19 01/12/19 Unknown tramadol 50 mg PO Q6H PRN 01/12/19 01/12/19 Unknown venlafaxine 150 mg PO QAM 01/12/19 01/12/19 Unknown Past Medical History Medical History Asthma BPH (benign prostatic hyperplasia) Chronic back pain Depression Diabetes mellitus, type 2 GERD (gastroesophageal reflux disease) NO MEDS Gout Hyperlipidemia NO MEDS Hypertension Osteoarthritis Past Surgical History Surgical History History of reduction of closed fracture LEFT LEG WITH TRACTION Hx of appendectomy Hx of reduction of closed fracture BOTH ARMS Hx of reduction of nasal fracture Hx of removal of neck cyst BRACHIAL AREA Hx of total knee arthroplasty RIGHT KNEE Past Anesthesia History No Hx of Anesthesia Complications and No Family Hx of Anesthesia Complications History of PONV No Motion Sickness Screening History of Motion Sickness: No Social History Smoking Status: Never smoker Do You Dip or Chew Tobacco: Yes (1 CAN EVERY DAY/ ADVISED) Hx Alcohol Use: No Hx Substance Use: No substance use type: does not use Exercise / Class Metabolic Activity II 4-5 Yardwork/Stairs/Walk up hill (Able to climb FOS. Denies CP or SOB. ( Unless asthma is acting up)) Review of Systems Patient denies chest pain, reflux, cough, palpitations. +SOB/Dyspnea (when asthma is acting up only) +joint pain (knee, lower back) + wheezing (when asthma is acting up. Controlled with albuterol) Physical Exam Vital Signs BP: 158/106 (patient states it usually runs ~148/98: Denies CP, N/V, blurred vision, headache) P: 96 R: 16 T: 98.0 SPO2: 97% on RA Constitutional + morbidly obese ENMT Thyromental Distance: > or= 3.5 Finger Breadths (4) Mallampati Class: I Neck normal visual inspection, trachea midline and + thick neck; neck extension not limited Respiratory normal respiratory effort Auscultation: lungs clear to auscultation bilaterally Cardiovascular Rate/Rhythm: regular rate and regular rhythm Heart Sounds: no murmur Vessels: no carotid bruit Neurologic moves all extremities Psychiatric Orientation: alert and oriented x 3 Testing Electrocardiogram Date: 07/19/18 Findings: + NSR @ (71) and + no change from (02/20/16) Chest X-Ray Date: 01/14/19 Findings: + NAD Laboratory Results 01/14/19 09:59 01/14/19 09:59 Blood Type O Positive 01/14/19 09:59 Antibody Screen NEGATIVE 01/14/19 09:59 PT 10.0 Seconds (9.0-12.0) 01/14/19 09:59 INR 1.0 (0.9-1.1) 01/14/19 09:59 APTT 28.2 Seconds (21.0-31.0) 01/14/19 09:59 Hemoglobin A1c 7.4 % (4.5-5.6) H 01/14/19 09:59 Surgeon's office notified of elevated HgbA1C.
--- NOTE | 2019-01-14 11:26 | XRay Report ---
XR chest Pre-admission PA/Lat CLINICAL HISTORY: pat preoperative evaluation COMPARISON STUDY: 02/13/2017 FINDINGS: The bones soft tissues and hemidiaphragms are normal. The cardiomediastinal silhouette is n ormal. The lungs are clear. The pulmonary vasculature is normal. IMPRESSION: Negative chest. The above report was generated using voice recognition software. It may contain grammatical, syntax or spelling errors. Electronically signed by: Prieto Kyle M.D. 01/14/2019 11:24 AM
[2019-01-14 11:56] LABS: Basophils # (auto) 0.02 K/uL (0-0.2); Basophils % (auto) 0.3 %; Eosinophils # (auto) 0.14 K/uL (0-0.5); Eosinophils % (auto) 2.2 %; Hematocrit (blood only) 44.9 % (42-52); Hemoglobin 15.1 g/dL (14.0-18.0); Immature Granulocytes # (auto) 0.02 K/uL (0.00-0.02); Immature Granulocytes % (auto) 0.3 %; Lymphocytes # (auto) 2.02 K/uL (1.2-3.4); Lymphocytes % (auto) 31.1 %; Mean Corpuscular Hgb Conc 33.6 g/dL (32-36); Mean Corpuscular Volume 90.2 fL (80-100); Mean Platelet Volume 10.9 fL (7.4-10.4); Monocytes % (auto) 9.2 %; Neutrophils % (auto) 56.9 %; Platelet Count 293 K/uL (130-400); RDW Coefficient of Variation 13.2 % (11.5-14.5); Red Blood Count 4.98 M/uL (4.7-6.1)
[2019-01-14 12:01] LABS: BUN Creatinine Ratio 16.3 (10-20); Blood Urea Nitrogen 14 mg/dl (7-18); Calcium 8.8 mg/dl (8.5-10.1); Carbon Dioxide 24 mmol/L (21-32); Chloride 106 mmol/L (98-107); Creatinine Clr Calc Pharmacy 145.4 ml/min; Est GFR (African American) 111.3; Glucose 125 mg/dl (70-99); Potassium 4.3 mmol/L (3.5-5.1); Sodium 134 mmol/L (136-145)
[2019-01-14 12:05] LABS: C Reactive Protein < 0.29 mg/dl (0-0.29)
[2019-01-14 12:18] LABS: Partial Thromboplastin Ratio 1.1; Partial Thromboplastin Time 28.2 Seconds (21.0-31.0)
[2019-01-14 12:32] LABS: Estimated Average Glucose 166 mg/dl; Hemoglobin A1C 7.4 % (4.5-5.6)
--- NOTE | 2019-01-24 18:12 | History and Physical Report ---
DATE OF ADMISSION: 02/08/2019 CHIEF COMPLAINT: Persistent progressive left knee pain. HISTORY OF PRESENT ILLNESS: The patient is a 58-year-old gentleman who is well known to me from previous bilateral knee arthroscopy as well as a more recent right knee replacement done about 2 years ago. He has done well from a right knee standpoint. He has developed progressive and more debilitating left knee pain and discomfort. He had this knee scoped in 2010. He did okay for a while, but over the past several years, he has developed increased pain and discomfort. Pain is primarily medially, but some pain globally in his knee. With increased weightbearing, he has more pain. He has been through steroid shots and viscosupplementation, which had become less successful over time. The more he walks, the more it hurts. He limps as the day goes on. He has nighttime pain. He would like to have his left knee fixed. PAST MEDICAL HISTORY: 1. Hypertension. 2. Elevated cholesterol. 3. Sleep apnea. 4. Anxiety/depression. 5. Diabetes x1 year with reasonably controlled A1c. 6. Low back pain. 7. Obesity with a BMI of 47. PAST SURGICAL HISTORY: 1. Bilateral knee scopes, right one done in 2013, left one done in 2010. 2. Right knee replacement done 03/11/2017. 3. Arm fracture. ALLERGIES: None. CURRENT MEDICINES: 1. Allopurinol 300 mg a day for gout. 2. Hydrochlorothiazide 25 mg a day. 3. Diclofenac twice a day. 4. Enalapril 20 mg a day. 5. Tramadol as needed. 6. Albuterol inhaler 4 times a day. 7. Unspecified anti-depression medicine. SOCIAL HISTORY: A 58-year-old male. He is from [place]. He is . His medical doctor is Dr. Parsons. FAMILY HISTORY: Noncontributory. REVIEW OF SYSTEMS: Negative for recently diagnosed with diabetes. Denies any current chest pain or shortness of breath. No evidence of DVT or PE. No known bleeding disorders. PHYSICAL EXAMINATION: GENERAL: Reveals a fairly large healthy appearing, middle-aged male. Looks to be in pretty good health. HEENT: Benign. NECK: Supple. No lymphadenopathy. LUNGS: Clear to auscultation. HEART: Regular rate and rhythm. ABDOMEN: Soft, nontender, nondistended. EXTREMITIES: Grossly neurovascularly intact except as follows: Examination of left knee reveals patient ambulates with a bit of a limp. He has got varus alignment to his left knee with a varus thrust with weightbearing. He is tender over the medial joint line. Small knee effusion. Range of motion is about 10 degrees show full extension to 110 degrees of flexion. No instability. He is neurologically intact. Examination of the right knee reveals well-healed incision. Range of motion 0-110. Good straight leg raise. No pain with hip motion. X-RAYS: X-rays of the left knee reviewed. Shows advanced left knee medial compartment DJD. He has got complete loss of medial joint space. He does have some osteophytes laterally as well. ASSESSMENT: A 58-year-old gentleman 2 years out from a right knee replacement with advanced and persistent left knee pain unresponsive to conservative treatment. Has a history of knee arthroscopy in this knee in the past. He now would like to proceed with a left knee replacement. PLAN: We will take him to the operating room and do a left total knee replacement. The risks and benefits of this procedure were explained to the patient including but not limited to DVT, PE, , infection, neurological injury, vascular injury, bleeding problem, pain, limited range of motion, stiffness, failure to relieve symptoms, incomplete relief of symptoms, need for further surgery in the future, fracture, leg length inequality, nerve palsy, etc. The patient understands and desires to be informed consent was obtained. He is planning to be discharged to home, using home health program. We will be use insulin sliding scale coverage in the hospital. We did talk to him about holding his enalapril the morning of surgery.
[~2019-02-08 07:15] MED LIST changes: -ALLO300T2 PO; -BUPIVACAINE LIPOSOME 266 MG, BUPIVACAINE/EPINEPHRINE INJ 50 ML, SODIUM CHLORIDE 0.9% PF... INFIL SCH; +BUPIVACAINE LIPOSOME/PF 266 MG, BUPIVACAINE/EPINEPHRINE 50 ML, SODIUM CHLORIDE 0.9% 30 ... INFIL SCH; -BUPIVACAINE/EPINEPHRINE 0.25% 1:200,000 30 ML VIAL ONE; -CEFAZOLIN 3000 MG/65 ML D5W 65 ML IV SCH; +CEFAZOLIN 3000MG 65 ML IV SCH; -CHOL1000 PO; -DEXAMETHASONE SOD INJ 4 MG/ML VIAL ONE; -DICL-201 PO; -ENAL10TA88 PO; -GABAPENTIN 300 MG CAP PO SCH; +GABAPENTIN 300 MG x 2 PO SCH; -HYDR25TA5 PO; -IPRA1AER2 INH; -LACTATED RINGER'S 1000ML 1,000 ML IV SCH; -LACTATED RINGER'S 1000ML 500 ML IV ONE; -LACTATED RINGER'S 1000ML IV SCH; +LR 500ML BOLUS, THEN 15ML/HR IV SCH; +LR 60ML/HR IV SCH; -METOCLOPRAMIDE HCL 10 MG TAB PO SCH; +METOCLOPRAMIDE HCL 10 MG TABLET PO SCH; -OMEG10007 PO; -TRAM-10 PO; +TRANEXAMIC ACID 1,000 MG **IV Intra-op IV SCH; -TURMERIC PO; -VENL150C PO; -VITAMIN B12 PO; -VNTHFA/IN INH
[2019-02-08] MEDS ORDERED: BUPIVACAINE 0.5 % 5 MG/1 ML PF 10ML VIAL ONE (07:31)
[2019-02-08] MEDS ORDERED: ROPIVACAINE 0.5% 5 MG/ML 30 ML VIAL ONE (07:31)
--- NOTE | 2019-02-08 09:20 | History & Physical Bridge Note ---
Date of Service February 08, 2019 History & Physical Bridge Note I have examined the patient, reviewed the History & Physical and in the interval since the performance of the History & Physical I have noted the following changes of clinical significance: no changes noted
[2019-02-08] MEDS ORDERED: fentaNYL citrate 100 MCG/2 ML VIAL IV PRN (10:03)
[2019-02-08] MEDS ORDERED: ONDANSETRON INJ 2 MG/ML 2 ML VIAL IV PRN ×2 (10:03→14:08)
[2019-02-08] MEDS ORDERED: ePHEDrine sulfate 50 MG/ML AMP IV PRN (10:03)
[2019-02-08] MEDS ORDERED: ATROPINE SULFATE 0.1 MG/ML 10ML SYR IV PRN (10:03)
[2019-02-08] MEDS ORDERED: MIDAZOLAM HCL 1 MG/ML 2ML VIAL ONE ×3 (10:23→11:24)
[2019-02-08] MEDS ORDERED: SODIUM CHLORIDE 0.9% PF 50 ML VIAL ONE (10:40)
[2019-02-08] MEDS ORDERED: BUPIVACAINE LIPOSOME 1.3% 266 MG/20 ML VIAL ONE (10:41)
[2019-02-08] MEDS ORDERED: BACITRACIN INJ 50,000 UNIT VIAL ONE (10:41)
[2019-02-08] MEDS ORDERED: EPINEPHrine INJ 1 MG/ML AMP ONE (10:42)
[2019-02-08] MEDS ORDERED: BUPIVACAINE 0.25% 30 ML VIAL ONE (10:42)
--- NOTE | 2019-02-08 13:00 | Post Operative Brief Note ---
Immediate Post Op Note v1 Date of Surgery February 08, 2019 Pre & Post Diagnosis Operation Date: 02/08/19 10:40 Pre-Op Diagnosis: Left Knee Osteoarthritis Post-Op Diagnosis: Left Knee Osteoarthritis Procedure Operation Date: 02/08/19 10:40 Actual Procedures p Left Total Knee Arthroplasty(Left) - Yonis Byrd MD Surgeon Yonis Byrd MD Can Reforming Machine Operator Ermelinda, PAC Estimated Blood Loss 50 Findings Consistent with Post-Op Diagnosis Fluids 1200 cc Specimens Left Knee Drains Barney Catheter (16 taiwanese 10ml balloon) Anesthesia Type Spinal MAC Complications none Disposition Accompanied Patient To Recovery: No Disposition: Recovery Room
--- NOTE | 2019-02-08 13:37 | Anesthesiology Progress Note ---
Date of Service February 08, 2019 Anesthesia Post Procedure Vital Signs Vital Signs: Temp Pulse Pulse Resp BP BP Pulse Ox 02/08/19 13:25 88 13 167/75 H 94 02/08/19 13:15 70 19 125/77 94 02/08/19 13:05 36.4 C L 85 15 122/62 96 02/08/19 08:20 36.4 C L 99 H 18 156/108 H 99 Notes Mental Status: alert / awake / arousable and participated in evaluation Patient Amnestic to Procedure: Yes Nausea / Vomiting: adequately controlled Pain: adequately controlled Airway Patency, RR, SpO2: stable & adequate BP & HR: stable & adequate Hydration State: stable & adequate Neuraxial Anesthesia: was administered and sensory block is resolving Anesthetic Complications: no major complications apparent
--- NOTE | 2019-02-08 13:49 | XRay Report ---
XR knee LT 2V routine CLINICAL HISTORY: Surgical Post Op post joint replacement COMPARISON: None. DISCUSSION: Anatomic alignment post total left knee arthroplasty. Good contact between prosthetic and underlying bone. Expected soft tissue postoperative change. IMPRESSION: Anatomic alignment post total left knee arthroplasty The above report was generated using voice recognition software. It may contain grammatical, syntax or spelling errors. Electronically signed by: Prieto Kyle M.D. 02/08/2019 1:48 PM
[2019-02-08] MEDS ORDERED: CARBOHYDRATES FOR HYPOGLYCEMIA PO PRN (14:08)
[2019-02-08] MEDS ORDERED: ALBUTEROL HFA 8 GM INHALER INH PRN (14:08)
[2019-02-08] MEDS ORDERED: TAMSULOSIN HCL 0.4 MG CAP PO PRN (14:08)
[2019-02-08] MEDS ORDERED: PHARMACY GLYCEMIC MGMT CONSULT STA (14:08)
[2019-02-08] MEDS ORDERED: ALUMINUM/MAGNESIUM SUSP 30 ML UDC PO PRN (14:08)
[2019-02-08] MEDS ORDERED: MAGNESIUM HYDROXIDE SUSP 30 ML UDC PO PRN (14:08)
[2019-02-08] MEDS ORDERED: DEXTROSE 50% 50 ML SYRINGE IV PRN (14:08)
[2019-02-08] MEDS ORDERED: NALOXONE HCL 0.4 MG/1 ML VIAL/CARP IV PRN (14:08)
[2019-02-08] MEDS ORDERED: BISACODYL 10 MG SUPP PR PRN (14:08)
[2019-02-08] MEDS ORDERED: HYDROmorphone INJ 0.5 MG/0.5 ML SYR IV PRN (14:08)
[2019-02-08] MEDS ORDERED: METOCLOPRAMIDE HCL INJ 5 MG/ML 2 ML VIAL IV PRN (14:08)
[2019-02-08] MEDS ORDERED: GLUCAGON FOR INJ 1 MG VIAL SQ PRN (14:08)
[2019-02-08] MEDS ORDERED: GLUCOSE 40% GEL 15 GM TUBE PO PRN (14:08)
[2019-02-08] MEDS ORDERED: GLUCOSE 10 TABS/TUBE PO PRN (14:08)
[2019-02-08] MEDS ORDERED: PHARMACY GLYCEMIC MGMT CONSULT PRN (14:32)
[2019-02-08] MEDS: KETOROLAC 30 MG/ML VIAL IV SCH ×2 (15:31→22:41)
[2019-02-08] MEDS: ACETAMINOPHEN 500 MG TAB PO SCH ×2 (15:31→22:41)
[2019-02-08] MEDS: CHECK SCOPOLAMINE PATCH PLACEMENT SCH (15:31)
[2019-02-08] MEDS: OXYCODONE HCL IR 5 MG TAB (IMMEDIATE RELEASE) PO PRN ×2 (15:32→20:47)
[2019-02-08] MEDS: SODIUM CHLORIDE 0.9% 1000ML 1,000 ML IV SCH ×2 (15:35→21:41)
--- NOTE | 2019-02-08 15:42 | Pharmacy Report ---
Glycemic Control Consultation - Date of Service February 08, 2019 - Scope Scope: Glycemic Pharmacist consulted by Dr Byrd on 02/08/19 for glycemic control and to write orders per [facility] inpatient glycemic control protocol - Objective Weight: 154.902 kg Accuchecks BSG (last 24hrs): 02/08/19 02/08/19 07:52 13:12 POC Glucose 154 H 121 H HbA1c: Hemoglobin A1c 7.4 % (4.5-5.6) H 01/14/19 09:59 - Recent Pertinent Medications Outpatient Anti-diabetic Regimen: * Metformin 500mg QAM * A1c = 7.4 % 01/14/19 - Assessment & Plan Assessment & Plan: ASSESSMENT: * Mr. Steel s/p L TKA. He is only maintained on Metformin as an outpt. He did not receive any steroids pre/rigoberto-operatively. PLAN FOR INPATIENT GLYCEMIC CONTROL: * Holding outpatient oral diabetes medications * Basal insulin * Lantus 20 units x1 than a lantus scale for HS * Bolus insulin * NovoLog per scale ACHS or Q6hrs while NPO * Goal Range: Low 110 mg/dL - High 140 mg/dL * Correction Factor: 15 mg/dL/unit * Nutritional / Prandial insulin per carb ratio of 1 unit per 5 grams CHO consumed * Please note that the plan above was derived based on current level of insulin resistance and hospital stress. These recommendations are appropriate for inpatient admission only. Plan of care upon discharge will need to be reassessed to avoid potential outpatient hypo/hyperglycemia. Thank you.
[2019-02-08] MEDS ORDERED: INSULIN GLARGINE SOLOSTAR 100 UNITS/ML 3 ML PEN SC ONE (16:00)
[2019-02-08] MEDS: ASCORBIC ACID 500 MG TAB PO SCH (18:23)
[2019-02-08] MEDS: FERROUS GLUCONATE 324 MG TAB PO SCH (18:23)
[2019-02-08] MEDS: INSULIN ASPART 100 UNITS/ML 3 ML PEN SC SCH ×2 (18:25→21:38)
[2019-02-08] MEDS ORDERED: TRANEXAMIC ACID 1,000 MG in 0.9 % SODIUM CHLORIDE 100 ML IV SCH (19:00)
[2019-02-08] MEDS: SENNA 8.6 MG TAB PO SCH (20:45)
[2019-02-08] MEDS: ASPIRIN 81 MG ECTAB PO SCH (20:50)
[2019-02-08] MEDS: DOCUSATE SODIUM 100 MG CAP PO SCH (20:50)
[2019-02-08] MEDS: IPRATROPIUM BROMIDE/ALBUTEROL respimat INH INH SCH (20:51)
[2019-02-08] MEDS ORDERED: PRAZOSIN HCL 1 MG CAP PO PRN (21:00)
[2019-02-08] MEDS: TAPENTADOL HCL ER 50 MG TABCR PO SCH (21:10)
[2019-02-08] MEDS ORDERED: Nursing to Pharmacy Communication ONE (21:11)
[2019-02-08] MEDS ORDERED: ENALAPRIL MALEATE 10 MG TAB PO ONE (21:30)
[2019-02-08] MEDS: INSULIN GLARGINE SOLOSTAR 100 UNITS/ML 3 ML PEN SC SCH (21:37)
[2019-02-08] MEDS: CEFAZOLIN 2000MG 2,000 MG/15 ML SYR IV SCH (22:40)
[2019-02-09] MEDS: CHECK SCOPOLAMINE PATCH PLACEMENT SCH (00:07)
--- NOTE | 2019-02-09 01:23 | Operative Report ---
DATE OF OPERATION: 02/08/2019 SURGEON: Yonis Byrd MD REFERRAL MANAGEMENT LIAISON: CORY Skinner PREOPERATIVE DIAGNOSIS: Left knee degenerative joint disease. POSTOPERATIVE DIAGNOSIS: Left knee degenerative joint disease. PROCEDURE PERFORMED: Left cemented posterior stabilized total knee arthroplasty. COMPLICATIONS: None. ESTIMATED BLOOD LOSS: 50 mL FLUID REPLACEMENT: 1200 mL of crystalloid fluid replacement. ANESTHESIA: Spinal with adductor canal block. DRAINS: None. SPECIMENS: Left knee sent for pathology. OPERATIVE INDICATIONS: The patient is a 58-year-old fairly active gentleman who has had a long history of knee problems. He underwent a bilateral knee scopes in the past, which provided some temporary relief. He has been through extensive conservative treatment over the years. He underwent a right knee replacement several years ago and has done well from this. He continued to have persistent progressive pain in his left knee and elected to proceed with total knee arthroplasty. OPERATIVE FINDINGS: Operative findings revealed advanced left knee DJD. There are extensive grade 4 changes in the medial and patellofemoral compartments. He had fixed varus deformity to his knee. He has significant flexion contracture to his knee. He had multiple loose bodies throughout his knee as well as some large posterior osteophytes. OPERATIVE IMPLANTS: 1. Operative implants consisted of a Biomet Vanguard size 75, left posterior bifemoral component. 2. Biomet size 79 tibial tray. 3. A 10 mm posterior stabilized polyethylene insert. 4. A 37 x 10 all-poly patella. OPERATIVE PROCEDURE: The patient was taken to the operating room, identified and placed on the operating table in supine position. All contact areas were appropriately padded. IV antibiotics were provided by anesthesia team. A spinal anesthetic and adductor canal block had been provided in the holding area. Barney catheter was placed in sterile fashion. Left thigh tourniquet was then placed and left lower extremity was then prepped and draped in usual sterile fashion. Left leg was elevated and exsanguinated with use of an Esmarch and tourniquet was placed at 300 mmHg. An anterior approach to the left knee was then performed through a longitudinal incision centered over the patella. Sharp dissection was carried through subcutaneous tissue down below the extensor mechanism. A medial parapatellar arthrotomy incision was made. Some subperiosteal dissection was carried out medially. The fat pad was resected from beneath the patellar tendon. The lateral patellofemoral ligament was released. The patella was everted and knee was flexed. The osteophytes were taken off the distal femur. The lateral patellofemoral ligament was released. The ACL and PCL were then released from the distal femur and the tibia subluxating anteriorly. I did do a pretty extensive medial and posteromedial release to correct this patient's fixed varus deformity and flexion contracture of 10-15 degrees preoperatively. The external tibial alignment jig was then placed in the anterior face of the tibia and adjusted 16 mm medially. Proximal tibial cut was made to remove about a millimeter or 2 of bone from most deficient aspect of the medial tibial plateau. Tibia was sized to a size 79. Attention was then drawn to the femur. The distal femur was entered with a sharp drill bit. Intramedullary canal was suctioned. A left 6-degree valgus cutting guide was then placed, a distal femoral cutting block was pinned in place. Distal femoral cut was made to take an additional 3 mm bone off the distal femur. Femur was then sized to a size 75. We downsized this just slightly. The AP cutting block was pinned parallel to the epicondylar axis, which was 5 degrees of external rotation. The anterior cut, anterior chamfer cut, posterior cut, posterior chamfer cuts were made. Box cutting guide was placed and adjusted slightly lateral and the box cut was made. The knee was flexed. The remnants of medial lateral menisci were excised. The osteophytes were taken off the posterior aspect of the femur. A trial femoral component was placed. Tibial tray was pinned in maximum external rotation and drill and stem punch were used to create defect in proximal tibia for the tibial tray. The knee was then trialed and a 10-mm insert fit most appropriately. Attention was then drawn to the patella. Patella was cleaned of all soft tissues. Patella thickness measured 27 mm in thickness and it was cut down to 15. It was sized to a size 37 patella. Lug holes were drilled for 37 patella. Lateral osteophyte was removed. Patella button was placed. Knee was taken through range of motion and patella tracked nicely with no thumbs test. Attention was then drawn toward placement of permanent components. All trial components were removed. A bone plug was placed in the distal femur to limit blood loss. A double batch of Palacos G cement was mixed. A BiomCityINguard size 75 left posterior stabilized femoral component, size 79 tibial tray, 10 mm posterior stabilized polyethylene insert, and a 37 x 10 all-poly patella then cemented in place. Knee was brought into full extension until cement hardened. A final cement check was then performed. Pericapsular tissues were injected with a total of 100 mL of a combination of 20 mL of Exparel, 30 mL of normal saline, 50 mL of 0.25% Marcaine with epinephrine. The patient did receive 1 g of tranexamic acid. The tourniquet was then let down for final tourniquet time of 65 minutes. Hemostasis was assured with use of electrocautery. The extensor mechanism was then closed with a combination of #1 PDS suture and #1 Vicryl suture in a [id number] fashion. Extensor mechanism was checked and found to be intact. The subcutaneous tissues were then closed with 2-0 Dexon suture in a buried interrupted fashion. Skin was closed with skin elsi. Leg was then cleaned and dried and a sterile dressing with Xeroform, 4 x 4, sterile cast padding and Dustin bandage were applied. The patient then transferred to the recovery room in stable condition. The patient tolerated the procedure well with no complication. All needle and sponge counts were correct at the end of the operation. I attest to the content of the Intraoperative Record and any orders documented therein. Any exceptions are noted below. POOJA
[2019-02-09] MEDS: OXYCODONE HCL IR 5 MG TAB (IMMEDIATE RELEASE) PO PRN ×5 (04:04→21:00)
[2019-02-09] MEDS: KETOROLAC 30 MG/ML VIAL IV SCH ×4 (04:05→22:10)
[2019-02-09] MEDS: CEFAZOLIN 2000MG 2,000 MG/15 ML SYR IV SCH (04:05)
[2019-02-09] MEDS: SODIUM CHLORIDE 0.9% 1000ML 1,000 ML IV SCH (04:51)
[2019-02-09] MEDS: ACETAMINOPHEN 500 MG TAB PO SCH ×3 (05:36→22:10)
[2019-02-09] MEDS: IPRATROPIUM BROMIDE/ALBUTEROL respimat INH INH SCH ×2 (07:48→20:59)
[2019-02-09] MEDS: MULTIVITAMIN TAB PO SCH (07:49)
[2019-02-09] MEDS: ENALAPRIL MALEATE 10 MG TAB PO SCH (07:49)
[2019-02-09] MEDS: CYANOCOBALAMIN 500 MCG TABLET (VITAMIN B-12) PO SCH (07:49)
[2019-02-09] MEDS: VENLAFAXINE HCL XR 150 MG CAPXR PO SCH (07:49)
[2019-02-09] MEDS: DOCUSATE SODIUM 100 MG CAP PO SCH ×2 (07:50→18:33)
[2019-02-09] MEDS: ASCORBIC ACID 500 MG TAB PO SCH ×2 (07:50→18:33)
[2019-02-09] MEDS: OMEGA-3 (PURIFIED FISH OIL) 1 GM CAP PO SCH (07:50)
[2019-02-09] MEDS: CHOLECALCIFEROL 1,000 UNITS TAB PO SCH (07:50)
[2019-02-09] MEDS: hydroCHLOROthiazide 25 MG TAB PO SCH (07:50)
[2019-02-09] MEDS: ALLOPURINOL 300 MG TAB PO SCH (07:50)
[2019-02-09] MEDS: FERROUS GLUCONATE 324 MG TAB PO SCH ×2 (07:50→18:34)
[2019-02-09] MEDS: ASPIRIN 81 MG ECTAB PO SCH ×2 (07:50→21:00)
[2019-02-09] MEDS: TAPENTADOL HCL ER 50 MG TABCR PO SCH ×2 (07:54→21:02)
[2019-02-09] MEDS: INSULIN ASPART 100 UNITS/ML 3 ML PEN SC SCH ×4 (08:41→21:04)
[2019-02-09] MEDS: INSULIN GLARGINE SOLOSTAR 100 UNITS/ML 3 ML PEN SC SCH ×2 (08:42→21:03)
[2019-02-09 08:46] LABS: Hematocrit (blood only) 36.2 % (42-52); Hemoglobin 12.1 g/dL (14.0-18.0); Mean Corpuscular Hgb Conc 33.4 g/dL (32-36); Mean Corpuscular Volume 90.5 fL (80-100); Mean Platelet Volume 10.6 fL (7.4-10.4); Platelet Count 269 K/uL (130-400); RDW Coefficient of Variation 13.2 % (11.5-14.5); RDW Standard Deviation 43.2 fL (36.4-46.3)
[2019-02-09] MEDS ORDERED: BEET ROOT EXTRACT PO SCH (09:00)
[2019-02-09 09:24] LABS: BUN Creatinine Ratio 19.5 (10-20); Calcium 8.3 mg/dl (8.5-10.1); Creatinine Clr Calc Pharmacy 136.1 ml/min; Est GFR (Non-African American) 91.4
--- NOTE | 2019-02-09 11:15 | Anesthesiology Progress Note ---
Date of Service February 09, 2019 Anesthesia Post Procedure Vital Signs Vital Signs: Temp Pulse Pulse Resp BP Pulse Ox Pulse Ox 02/09/19 10:41 37.1 C 110 H 18 150/88 H 96 02/09/19 07:02 36.4 C L 98 H 18 135/79 95 02/09/19 02:42 36.8 C 97 H 22 122/89 98 02/08/19 23:24 36.7 C 89 20 147/84 H 95 02/08/19 19:52 37.1 C 99 H 20 149/97 H 96 02/08/19 17:14 36.8 C 107 H 18 148/96 H 95 02/08/19 16:10 107 H 18 151/99 H 95 02/08/19 15:04 37.0 C 94 H 20 134/90 97 02/08/19 14:30 36.5 C 78 20 140/82 98 02/08/19 14:05 36.5 C 88 17 146/80 H 95 95 02/08/19 13:45 70 17 156/93 H 94 02/08/19 13:35 37.4 C 69 18 148/78 H 94 02/08/19 13:25 88 13 167/75 H 94 02/08/19 13:15 70 19 125/77 94 02/08/19 13:05 36.4 C L 85 15 122/62 96 Pain Intensity Left Knee: Pain Intensity: 3 Notes Mental Status: alert / awake / arousable and participated in evaluation Patient Amnestic to Procedure: Yes Nausea / Vomiting: adequately controlled Pain: adequately controlled Airway Patency, RR, SpO2: stable & adequate BP & HR: stable & adequate Hydration State: stable & adequate Neuraxial Anesthesia: was administered and sensory block resolved Anesthetic Complications: no major complications apparent
--- NOTE | 2019-02-09 11:15 | Progress Note ---
DATE: 02/09/2019 SUBJECTIVE: A 58-year-old gentleman postop day 1 from a left knee replacement. He is doing pretty well. He has had some intermittent bouts of pain which responded to the pain medicine. Denies any chest pain or shortness of breath. Not feeling dizzy or lightheaded. OBJECTIVE: VITAL SIGNS: Temperature is 37.1. Vital signs stable. Some intermittent tachycardia. GENERAL: Physical examination reveals a pleasant, middle-aged male. He is sitting up in his bedside chair and looks completely comfortable. LUNGS: Clear to auscultation. HEART: Has a regular rate and rhythm. Pulse is in the 90s. ABDOMEN: Soft, nontender, nondistended. EXTREMITIES: Grossly neurovascularly intact except as follows: Examination of the left lower extremity reveals the leg to be well aligned. Dressing is clean, dry, and intact. He can dorsiflex and plantarflex his foot appropriately. He is neurologically intact. LABORATORY DATA: Hemoglobin 12.1. Hematocrit 36.2. Electrolytes are stable. ASSESSMENT: A 58-year-old gentleman postop day 1 from a left knee replacement, doing pretty well. He has had some intermittent pain which likely corresponds to some degree of hypertension and intermittent tachycardia, but it responds to the pain medicine. PLAN: 1. DVT prophylaxis including thigh-high TEDs, SCDs, and aspirin twice a day. 2. PT/OT. Weight bear as tolerated. Left total knee protocol. 3. Pain control, doing well with current pain regimen. 4. Disposition: He is planning to be discharged to home with some home health once adequately recovered.
--- NOTE | 2019-02-09 15:34 | Pharmacy Report ---
Pharmacy Glycemic Short Note 2 - Date of Service February 09, 2019 - Glycemic Short BSG Results (Last 24 hours): 02/08/19 02/08/19 02/09/19 17:12 21:08 08:08 Glucose POC Glucose 125 H 145 H 131 H 02/09/19 02/09/19 08:21 11:58 Glucose 136 H POC Glucose 145 H OUTPATIENT ANTIDIABETIC REGIMEN: * Metformin 500mg QAM * A1c = 7.4 % 01/14/19 ASSESSMENT: * Mr. Steel is POD #1 s/p L TKA. He received 34 units of insulin yesterday (20 units of basal/ 14 units of bolus) with excellent glycemic control. * He is tolerating an oral diet and Scr is at baseline, therefore metformin will be resumed 3 AM. PLAN FOR INPATIENT GLYCEMIC CONTROL: * Resume metformin 500 mg PO qAM * Basal insulin - decrease * Lantus per scale at HS * 0 units for BSG 150 mg/dL or less * 14 units for BSG greater than 150 mg/dL * Bolus insulin * NovoLog per scale ACHS or Q6hrs while NPO * Goal Range: Low 110 mg/dL - High 140 mg/dL * Correction Factor: 15 mg/dL/unit * Nutritional / Prandial insulin per carb ratio of 1 unit per 5 grams CHO consumed PLAN FOR DISCHARGE: * A1c of 7.4% * Recommend maximizing metformin dosing * may increase by 500 mg per week as tolerated to a goal of 1000 mg PO BID * administer with meals to limit GI side effects
[2019-02-09] MEDS: SENNA 8.6 MG TAB PO SCH (18:37)
[2019-02-10] MEDS: KETOROLAC 30 MG/ML VIAL IV SCH (05:02)
[2019-02-10] MEDS: OXYCODONE HCL IR 5 MG TAB (IMMEDIATE RELEASE) PO PRN ×2 (05:08→09:09)
[2019-02-10] MEDS: ACETAMINOPHEN 500 MG TAB PO SCH (05:52)
[2019-02-10] MEDS ORDERED: METFORMIN HCL 500 MG TAB PO SCH (07:30)
--- NOTE | 2019-02-10 07:41 | Progress Note ---
DATE: 02/10/2019 SUBJECTIVE: A 58-year-old gentleman postop day 2 from a left knee replacement. He is doing pretty well. Some pain, but responds to the pain medicine. No chest pain or shortness of breath. Not feeling dizzy or lightheaded. OBJECTIVE: VITAL SIGNS: Temperature 36.8. Vital signs stable. GENERAL: Physical examination reveals a pleasant, large, middle-aged male. He is sitting up in his bedside chair and looks pretty comfortable. EXTREMITIES: Examination of the left leg reveals the dressing to be in place. He does have some blisters over the medial proximal tibia area as well as little bit laterally. A moderate amount of swelling. He does have a little bit of drainage as well, serosanguineous in nature. His calf is soft and supple. He is neurologically intact. ASSESSMENT: A 58-year-old gentleman postop day 2 from a left knee replacement, doing well. Having some swelling which has caused some fracture blisters. His pain is reasonably well controlled. PLAN: 1. DVT prophylaxis including thigh-high TEDs, SCDs, and aspirin twice a day. 2. PT/OT. Weight bear as tolerated. Left total knee protocol. 3. Pain control, doing pretty well with current pain regimen. 4. Disposition: Plan to discharge to home with some home health later today.
[2019-02-10] MEDS: DOCUSATE SODIUM 100 MG CAP PO SCH (07:53)
[2019-02-10] MEDS: CYANOCOBALAMIN 500 MCG TABLET (VITAMIN B-12) PO SCH (07:54)
[2019-02-10] MEDS: CHOLECALCIFEROL 1,000 UNITS TAB PO SCH (07:54)
[2019-02-10] MEDS: FERROUS GLUCONATE 324 MG TAB PO SCH (07:54)
[2019-02-10] MEDS: VENLAFAXINE HCL XR 150 MG CAPXR PO SCH (07:54)
[2019-02-10] MEDS: MULTIVITAMIN TAB PO SCH (07:54)
[2019-02-10] MEDS: ALLOPURINOL 300 MG TAB PO SCH (07:54)
[2019-02-10] MEDS: ENALAPRIL MALEATE 10 MG TAB PO SCH (07:55)
[2019-02-10] MEDS: ASCORBIC ACID 500 MG TAB PO SCH (07:55)
[2019-02-10] MEDS: OMEGA-3 (PURIFIED FISH OIL) 1 GM CAP PO SCH (07:55)
[2019-02-10] MEDS: hydroCHLOROthiazide 25 MG TAB PO SCH (07:55)
[2019-02-10] MEDS: IPRATROPIUM BROMIDE/ALBUTEROL respimat INH INH SCH (07:56)
[2019-02-10] MEDS: ASPIRIN 81 MG ECTAB PO SCH (07:56)
[2019-02-10] MEDS: INSULIN ASPART 100 UNITS/ML 3 ML PEN SC SCH (07:59)
[2019-02-10] MEDS: TAPENTADOL HCL ER 50 MG TABCR PO SCH (08:05)
--- NOTE | 2019-02-10 15:23 | Pharmacy Report ---
ED Pharm Shanel Follow Up - ED Pharmacist Shanel Follow Up Date of Service: February 10, 2019
--- NOTE | 2019-02-11 08:16 | Discharge Summary ---
Date of Service February 16, 2019 Discharge Data Consultations 02/08/19 14:08 Consult Case Management - Discharge Planning Routine Procedures Performed Operation Date: 02/08/19 10:40 Actual Procedures p Left Total Knee Arthroplasty(Left) - Yonis Byrd MD
--- NOTE | 2019-02-15 15:49 | Discharge Summary ---
ADMITTING PHYSICIAN AND SURGEON: Dr. Yonis Byrd. ADMITTING DIAGNOSIS: Left knee degenerative joint disease. SURGERY PERFORMED: Left total knee arthroplasty. SECONDARY DIAGNOSES: Hypertension, elevated cholesterol, sleep apnea, anxiety, depression, diabetes, low back pain, obesity. CONSULTS: None obtained. HISTORY AND PHYSICAL EXAM: Well documented in the patient's chart. HOSPITAL COURSE: The patient was admitted on 02/08/2019 underwent total knee arthroplasty, tolerated the procedure well. There were no complications. He was transferred to the PACU postoperatively and later to the orthopedic for further care. He was given Ancef for antibiotic prophylaxis, DIEGO stockings, SCDs and aspirin for DVT prophylaxis. Hemoglobin, hematocrit and vital signs were monitored during his hospital stay and remained stable. He developed some mild postoperative anemia, did not require any blood transfusions. There were no complications. By postoperative day 2, he was tolerating a diabetic diet. Pain was controlled with oral pain medicine. He was participating in physical therapy. Postop day 2, he was discharged home, set up with home health services. He was given printed discharge instructions including new prescriptions fact strength Tylenol, aspirin, and oxycodone. Continue his home medications, continue physical therapy, weightbearing as tolerated, DIEGO stockings. Follow up approximately 2 weeks postoperatively or sooner if there are any problems or concerns.
== END 2019-02-10 10:30 | disposition home health service (06) | DRG 470 ==
LOC: ASU 07:15 → 3E 13:05